=== PATIENT | male | born 1980 | race Caucasian/White ===

== ENCOUNTER 2017-03-27 07:16 | Emergency (ER) | payer BC ==
[2017-03-27 07:22] VITALS: BP 130/79
--- NOTE | 2017-03-27 07:51 | UC ---
Dental HPI - HPI Summary HPI Summary: c/o dental cavity for some time which started to ache and swell 2 days ago. Denies fever, denies PMH. States he has been taking ibuprofen but pain is still /10 - History of Current Complaint Chief Complaint: UCDentalProblem Stated Complaint: TOOTH ABCESS Time Seen by Provider: 03/27/17 07:32 Hx Obtained From: Patient Onset/Duration: Gradual Onset Severity: Severe Pain Intensity: 8 Pain Scale Used: 0-10 Numeric Aggravating Factor(s): Chewing Alleviating Factor(s): OTC Meds Related History: Swelling - Allergies/Home Medications Allergies/Adverse Reactions: Allergies Allergy/AdvReac Type Severity Reaction Status Date / Time No Known Allergies Allergy Verified 03/27/17 07:22 PMH/Surg Hx/FS Hx/Imm Hx Previously Healthy: Yes - Surgical History Surgical History: Yes Surgery Procedure, Year, and Place: EXTERNAL LT FEMOR FIXATOR - Family History Known Family History: Positive: Unknown - Social History Lives: With Family Alcohol Use: Daily Substance Use Type: Marijuana Smoking Status (MU): Heavy Every Day Tobacco Smoker Type: Cigarettes Have You Smoked in the Last Year: Yes Review of Systems Constitutional: Negative Skin: Negative Eyes: Negative ENT: Negative Respiratory: Negative Cardiovascular: Negative Gastrointestinal: Negative Genitourinary: Negative Motor: Negative Neurovascular: Negative Musculoskeletal: Negative Neurological: Negative Psychological: Negative All Other Systems Reviewed And Are Negative: Yes Physical Exam Triage Information Reviewed: Yes Appearance: Well-Appearing, No Pain Distress Vital Signs: Initial Vital Signs Temp 98.1 F 03/27/17 07:18 Pulse 113 03/27/17 07:18 Resp 20 03/27/17 07:18 BP 130/79 03/27/17 07:18 Pulse Ox 93 03/27/17 07:18 Vital Signs Reviewed: Yes ENT: Positive: Pharynx normal, TMs normal Dental Exam: Other - cavitation of molar left mandible with soft tissue swelling and fluctuant mass on left mandible Neck exam: Normal Respiratory Exam: Normal Respiratory: Positive: Lungs clear Cardiovascular Exam: Normal Dental Complaint Course/Dx - Course Course Of Treatment: Patient comes with a dental abscess and pain, referred to Dental and start antibiotics and pain control, amoxil 875mg po bid for 7 days, percoset 5/325 1 tab po q6h prn #4 - Differential Dx/Diagnosis Provider Diagnoses: dental abscess - Physician Notification/Consults Instructed by Provider To: Other - referral dental Discharge - Discharge Plan Condition: Stable Disposition: HOME Patient Education Materials: Dental Abscess (ED) Images Dental: 1 - cavity 2 - missing
== END 2017-03-27 08:10 | disposition home or self-care (01) ==
LOC: UCEAST 07:16
DX: K04.7 Periapical abscess without sinus (principal); F17.210 Nicotine dependence, cigarettes, uncomplicated
CPT/HCPCS: 99212; G0463

== ENCOUNTER 2017-04-30 12:36 | Emergency (ER) | payer BC ==
[2017-04-30 14:11] VITALS: BP 123/76
[2017-04-30] MEDS ORDERED: HYDROcodone/ACETAMIN 5-325 MG* 1 TAB PO ONE (15:04)
[2017-04-30] MEDS ORDERED: Ibuprofen TAB* 400 MG PO ONE (15:05)
--- NOTE | 2017-04-30 15:26 | UC ---
Dental HPI - HPI Summary HPI Summary: 36 year old male with history of tooth abscesses needing multiple dental work and drainage in the OR here with one month of dental pain and facial swelling. He was seen here about one month ago, sent home on amox with partial relief of his symptoms. Reports he went to see dentist but he was not able to get procedure because of insurance. Denies fever or chills. No other complaints. - History of Current Complaint Chief Complaint: UCDentalProblem Stated Complaint: DENTAL ABSCESS Time Seen by Provider: 04/30/17 14:45 Onset/Duration: Gradual Onset Aggravating Factor(s): Chewing Alleviating Factor(s): Nothing - Allergies/Home Medications Allergies/Adverse Reactions: Allergies Allergy/AdvReac Type Severity Reaction Status Date / Time No Known Allergies Allergy Verified 04/30/17 14:11 PMH/Surg Hx/FS Hx/Imm Hx Previously Healthy: No - Surgical History Surgical History: Yes Surgery Procedure, Year, and Place: EXTERNAL LT FEMOR FIXATOR, pilonial cyst - Family History Known Family History: Positive: Unknown - Social History Alcohol Use: Occasionally Substance Use Type: Marijuana Smoking Status (MU): Heavy Every Day Tobacco Smoker Type: Cigarettes Have You Smoked in the Last Year: Yes Review of Systems Constitutional: Negative Skin: Negative Eyes: Negative ENT: Dental Pain, Other - no drooling Respiratory: Negative Cardiovascular: Negative Gastrointestinal: Negative Genitourinary: Negative Motor: Negative Neurovascular: Negative Musculoskeletal: Negative Neurological: Negative Psychological: Negative All Other Systems Reviewed And Are Negative: Yes Physical Exam Triage Information Reviewed: Yes Appearance: Well-Appearing, Well-Nourished Vital Signs: Initial Vital Signs Temp 37.1 C 04/30/17 14:03 Pulse 88 04/30/17 14:03 Resp 18 04/30/17 14:03 BP 123/76 04/30/17 14:03 Pulse Ox 98 04/30/17 14:03 Dental: Positive: Gross Decay/Caries @ - left lower molar, Other: - Left lower molar swelling No drooling, No tongue swelling Neck exam: Normal Neck: Positive: Supple Respiratory: Positive: Lungs clear, Normal breath sounds, No respiratory distress, No accessory muscle use Musculoskeletal Exam: Normal Neurological Exam: Normal Skin Exam: Normal Dental Complaint Course/Dx - Course Course Of Treatment: Dental abscess. Will treat with abx and NSAID. [facility] dental info given for no or low cost dental offices. - Differential Dx/Diagnosis Provider Diagnoses: Dental abscess Discharge - Discharge Plan Condition: Good Disposition: HOME Prescriptions: Clindamycin Cap(NF) [Clindamycin Cap 300 mg Cap(NF)] 300 mg PO TID #30 cap Ibuprofen TAB* [Motrin TAB* 600 MG] 800 mg PO BID PRN #20 tab PRN Reason: Pain oxyCODONE/Acetamin 5/325 MG* [Percocet 5/325 TAB*] 1 tab PO Q6H PRN #10 tab MDD 4 PRN Reason: Pain Patient Education Materials: Dental Abscess (ED) Referrals: No Primary Care Phys,NOPCP [Primary Care Provider] - Additional Instructions: Please call the list of dental appointment that you are provided. Take medications as prescribed.
== END 2017-04-30 15:37 | disposition home or self-care (01) ==
LOC: UCEAST 12:36
DX: K04.7 Periapical abscess without sinus (principal); F12.90 Cannabis use, unspecified, uncomplicated; Z72.0 Tobacco use
CPT/HCPCS: 99212; A9270-GY; G0463

== ENCOUNTER 2017-05-12 07:55 | Emergency (ER) | payer BC ==
[2017-05-12 08:09] VITALS: BP 131/90
--- NOTE | 2017-05-12 08:33 | UC ---
Skin Complaint HPI - HPI Summary HPI Summary: ONSET OF DIFFUSE HIVES OVER WHOLE BODY YESTERDAY. PT THINKS HE IS REACTING TO A BUG BITE. DENIES ANY NEW FOODS, SOAPS, LOTIONS, DETERGENTS OR CLOTHES. NO NEW EXPOSURES HE CAN IDENTIFY. NO RESPIRATORY INVOLVEMENT. NO FEVER. NO PREVIOUS SIMILAR EPISODES. - History of Current Complaint Chief Complaint: UCRash Time Seen by Provider: 05/12/17 08:25 Stated Complaint: FEVER NAUSEA RASH Hx Obtained From: Patient Onset/Duration: Gradual Onset, Lasting Hours Timing: Constant Onset Severity: Mild Current Severity: Moderate Pain Intensity: 0 Pain Scale Used: 0-10 Numeric Location: Diffuse Character: Pruritus, Hives, Redness Aggravating Factor(s): Touch Alleviating Factor(s): Nothing Associated Signs & Symptoms: Positive: Rash Related History: Insect Bite/Sting - Allergy/Home Medications Allergies/Adverse Reactions: Allergies Allergy/AdvReac Type Severity Reaction Status Date / Time No Known Allergies Allergy Verified 04/30/17 14:11 Review of Systems Constitutional: Negative Skin: Rash Respiratory: Negative Cardiovascular: Negative Gastrointestinal: Negative All Other Systems Reviewed And Are Negative: Yes PMH/Surg Hx/FS Hx/Imm Hx Respiratory History: COPD - Surgical History Surgical History: Yes Surgery Procedure, Year, and Place: EXTERNAL LT FEMOR FIXATOR, pilonial cyst - Family History Known Family History: Positive: Hypertension - Social History Alcohol Use: Occasionally Substance Use Type: Marijuana Smoking Status (MU): Heavy Every Day Tobacco Smoker Type: Cigarettes Have You Smoked in the Last Year: Yes Physical Exam Triage Information Reviewed: Yes Appearance: Well-Appearing, No Pain Distress, Well-Nourished Vital Signs: Initial Vital Signs Temp 98.8 F 05/12/17 08:05 Pulse 90 05/12/17 08:05 Resp 16 05/12/17 08:05 BP 131/90 05/12/17 08:05 Pulse Ox 95 05/12/17 08:05 Vital Signs Reviewed: Yes Eyes: Positive: Conjunctiva Clear ENT: Positive: Hearing grossly normal Neck: Positive: Supple Respiratory: Positive: No respiratory distress, No accessory muscle use Cardiovascular: Positive: Pulses Normal Abdomen Description: Positive: Soft Musculoskeletal: Positive: No Edema Neurological: Positive: Alert Psychological: Positive: Age Appropriate Behavior Skin: Positive: rashes - HIVES DIFFUSELY OVER TRUNK, FACE, UPPER AND LOWER EXTREMITIES, GROIN Course/Dx - Diagnoses Provider Diagnoses: URTICARIA Discharge - Discharge Plan Condition: Stable Disposition: HOME Prescriptions: predniSONE TAB* [Deltasone TAB*] 50 mg PO DAILY #5 tab Triamcinolone 0.1% CREAM(NF) [Kenalog Cream 0.1%(NF)] 1 applic TOPICAL TID PRN # 1 tube PRN Reason: Itching Patient Education Materials: Urticaria (ED) Referrals: No Primary Care Phys,NOPCP [Primary Care Provider] - Additional Instructions: USE DAILY MOISTURIZING LOTION AVOID HEAT AND HOT WATER TAKE OTC ANTIHISTAMINE DAILY (CLARITIN (LORATADINE), ZYRTEC (CETIRIZINE) OR LULU (FEXOFENADINE) IN THE MORNING, 25-50MG BENADRYL AT NIGHT) DO NOT SCRATCH KEEP COOL, CLEAN AND DRY IF YOU HAVE RECURRENT SYMPTOMS CONSIDER EVALUATION BY OVERLOCK OPERATOR [facility] Address: [facility] [place] [address] [facility] [address] [place] [address] , [address] [place] [address] GO TO THE ER WITHOUT FAIL IF YOU DEVELOP ANY RESPIRATORY INVOLVEMENT, SWELLING OF THE MUCOUS MEMBRANES OR ANY OTHER CONCERNING SYMPTOMS. CALL THE NUMBER BELOW FOR ASSISTANCE IN ESTABLISHING WITH A PCP An additional resource available to assist in finding the appropriate physician for your health care needs is the [facility] ([facility]ica[facility] Limon). You may contact them by calling [phone].
== END 2017-05-12 08:43 | disposition home or self-care (01) ==
LOC: UCEAST 07:55
DX: L50.9 Urticaria, unspecified (principal); F17.210 Nicotine dependence, cigarettes, uncomplicated; J44.9 Chronic obstructive pulmonary disease, unspecified
CPT/HCPCS: 99212; G0463

== ENCOUNTER 2017-05-17 19:42 | Inpatient (IN) | payer BC ==
[2017-05-17] MEDS ORDERED: NS 0.9% 1000 ML* 1,000 ML IV ONE (22:30)
[2017-05-17 22:54] LABS: ABS Basophils 0.1 10^3/ul (0-0.2); ABS Eosinophils 0.1 10^3/ul (0-0.6); ABS Lymphocytes 2.2 10^3/ul (1.0-4.8); ABS Monocytes 1.2 10^3/ul (0-0.8); ABS Neutrophils 22.6 10^3/ul (1.5-7.7); ABS Nucleated RBC 0.01 10^3/ul; Eosinophil % 0.4 % (0-6); Hematocrit 43 % (42-52); Lymphocyte % 8.4 % (25-47); Mean Corpuscular HGB Conc 35 g/dl (31-36); Mean Corpuscular Hemoglobin 32 pg (27-31); Mean Corpuscular Volume 90 fL (80-94); Mean Platelet Volume 8 um3 (7.4-10.4); Nucleated Red Blood Cells % 0; Platelet Count 443 10^3/ul (150-450); Red Blood Count 4.72 10^6/ul (4.0-5.4); Red Cell Distribution Width 13 % (10.5-15); White Blood Count 26.2 10^3/ul (3.5-10.8)
[2017-05-17] MEDS ORDERED: Ondansetron INJ* 2 MG/ML VIAL IV ONE (22:54)
[2017-05-17] MEDS ORDERED: Ketorolac INJ* 30 MG/ML 1 ML VIAL IV PUSH ONE (22:57)
[2017-05-17] MEDS ORDERED: Morphine INJ* 4 MG/ML 1 ML CARPUJECT IV ONE (23:00)
[2017-05-17 23:06] LABS: EGFR Non-African American 131.3 (>60)
[2017-05-17 23:10] LABS: Urine Appearance Turbid; Urine Blood Negative (Negative); Urine Color Amber; Urine Ketones Trace (Negative); Urine Protein Negative (Negative); Urine Specific Gravity 1.025 (1.010-1.030); Urine Urobilinogen Positive (Negative)
[2017-05-18] MEDS ORDERED: NS 0.9% 1000 ML* 1,000 ML IV ONE ×2 (00:31→00:56)
[2017-05-18] MEDS ORDERED: Iohexol 300* (CONTRAST) 10 ML SDV IV ONE (01:26)
--- NOTE | 2017-05-18 02:32 | ED ---
Abdominal Pain/Male - HPI Summary HPI Summary: 36M presents with abdominal pain, nausea, vomiting and diarrhea since . He admits to fever. He states pain is greatest in RLQ but has generalized abdominal pain. He took ibuprofen and perocoet for his pain. He has not had any previous abdominal surgeries. He has never had this pain before. It is as 03/09. He denies any cough, dysuria, hematuria, flank pain, urgency or frequency. He denies anyone else being sick. He denies any blood in his stool. He denies any recent antibiotic usage. He states had rash a week ago that CC resolved with medication. He denies eating anything different. last meal 7pm shrimp which vomited up. had one episode diarrhea today. - History of Current Complaint Chief Complaint: EDAbdPain Stated Complaint: ABD PAIN/VOMITING Time Seen by Provider: 05/17/17 22:28 Pain Intensity: 10 - Allergies/Home Medications Allergies/Adverse Reactions: Allergies Allergy/AdvReac Type Severity Reaction Status Date / Time No Known Allergies Allergy Verified 05/17/17 20:03 PMH/Surg Hx/FS Hx/Imm Hx Endocrine/Hematology History: Denies: Hx Diabetes, Hx Thyroid Disease Cardiovascular History: Denies: Hx Hypertension Respiratory History: Reports: Hx Chronic Obstructive Pulmonary Disease (COPD) Denies: Hx Asthma GI History: Denies: Hx Ulcer History: Denies: Hx Dialysis, Hx Renal Disease - Surgical History Surgery Procedure, Year, and Place: EXTERNAL LT FEMOR FIXATOR, pilonial cyst Infectious Disease History: No Infectious Disease History: Denies: Hx Clostridium Difficile, Hx Hepatitis, Hx Human Immunodeficiency Virus (HIV), Hx of Known/Suspected MRSA, Hx Shingles, Hx Tuberculosis, Hx Known/ Suspected VRE, Hx Known/Suspected VRSA, History Other Infectious Disease, Traveled Outside the [place] in Last 30 Days - Family History Known Family History: Positive: Hypertension - Social History Alcohol Use: Occasionally Substance Use Type: Reports: Marijuana Smoking Status (MU): Heavy Every Day Tobacco Smoker Type: Cigarettes Have You Smoked in the Last Year: Yes Review of Systems Positive: Fever Negative: Chest Pain Negative: Shortness Of Breath Positive: Abdominal Pain, Vomiting, Diarrhea, Nausea All Other Systems Reviewed And Are Negative: Yes Physical Exam Triage Information Reviewed: Yes Vital Signs On Initial Exam: Initial Vitals Temp Pulse Resp BP Pulse Ox 99.2 F 98 16 136/81 96 05/17/17 19:55 05/17/17 19:55 05/17/17 19:55 05/17/17 19:55 05/17/17 19:55 Vital Signs Reviewed: Yes Appearance: Positive: Well-Appearing, Pain Distress Skin: Positive: Warm, Dry Head/Face: Positive: Normal Head/Face Inspection Eyes: Positive: Normal, EOMI, MARILEE, Conjunctiva Clear ENT: Positive: Normal ENT inspection, Pharynx normal, TMs normal Respiratory/Lung Sounds: Positive: Clear to Auscultation, Breath Sounds Present Cardiovascular: Positive: Normal, RRR Abdomen Description: Positive: Soft, Other: - diffuse tenderness greatest in RLQ Bowel Sounds: Positive: Present Musculoskeletal: Positive: Normal Neurological: Positive: Normal Psychiatric: Positive: Normal - Briseyda Coma Scale Coma Scale Total: 15 Diagnostics - Vital Signs Vital Signs Temp Pulse Resp BP Pulse Ox 05/18/17 01:03 100.4 F 101 18 138/72 91 05/17/17 23:25 20 05/17/17 21:44 98.6 F 104 16 125/75 93 05/17/17 19:55 99.2 F 98 16 136/81 96 - Laboratory Lab Results: Lab Results 05/17/17 05/17/17 05/17/17 Range/Units 22:43 22:43 22:59 WBC 26.2 H (3.5-10.8) 10^3/ul RBC 4.72 (4.0-5.4) 10^6/ul Hgb 15.0 (14.0-18.0) g/dl Hct 43 (42-52) % MCV 90 (80-94) fL MCH 32 H (27-31) pg MCHC 35 (31-36) g/dl RDW 13 (10.5-15) % Plt Count 443 (150-450) 10^3/ul MPV 8 (7.4-10.4) um3 Neut % (Auto) 86.1 H (38-83) % Lymph % (Auto) 8.4 L (25-47) % [place] % (Auto) 4.7 (1-9) % Eos % (Auto) 0.4 (0-6) % Baso % (Auto) 0.4 (0-2) % Absolute Neuts (auto) 22.6 H (1.5-7.7) 10^3/ul Absolute Lymphs (auto) 2.2 (1.0-4.8) 10^3/ul Absolute Monos (auto) 1.2 H (0-0.8) 10^3/ul Absolute Eos (auto) 0.1 (0-0.6) 10^3/ul Absolute Basos (auto) 0.1 (0-0.2) 10^3/ul Absolute Nucleated RBC 0.01 10^3/ul Nucleated RBC % 0 Sodium 132 L (133-145) mmol/L Potassium 3.3 L (3.5-5.0) mmol/L Chloride 93 L (101-111) mmol/L Carbon Dioxide 28 (22-32) mmol/L Anion Gap 11 (2-11) mmol/L BUN 8 (6-24) mg/dL Creatinine 0.69 (0.67-1.17) mg/dL Est GFR ( Amer) 168.8 (>60) Est GFR (Non-Af Amer) 131.3 (>60) BUN/Creatinine Ratio 11.6 (8-20) Glucose 109 H (70-100) mg/dL Lactic Acid (0.5-2.0) mmol/L Calcium 9.4 (8.6-10.3) mg/dL Total Bilirubin 0.60 (0.2-1.0) mg/dL AST 14 (13-39) U/L ALT 14 (7-52) U/L Alkaline Phosphatase 59 (34-104) U/L C-React Prot High Sens 28.38 mg/L Total Protein 7.3 (6.4-8.9) g/dL Albumin 4.2 (3.2-5.2) g/dL Globulin 3.1 (2-4) g/dL Albumin/Globulin Ratio 1.4 (1-3) Lipase 32 (11.0-82.0) U/L Urine Color Tammy Urine Appearance Turbid Urine pH 5.0 (5-9) Ur Specific [place] 1.025 (1.010-1.030) Urine Protein Negative (Negative) Urine Ketones Trace H (Negative) Urine Blood Negative (Negative) Urine Nitrate Negative (Negative) Urine Bilirubin Negative (Negative) Urine Urobilinogen Positive H (Negative) Ur Leukocyte Esterase Negative (Negative) Urine Glucose Negative (Negative) 12/19/17 Range/Units 01:19 WBC (3.5-10.8) 10^3/ul RBC (4.0-5.4) 10^6/ul Hgb (14.0-18.0) g/dl Hct (42-52) % MCV (80-94) fL MCH (27-31) pg MCHC (31-36) g/dl RDW (10.5-15) % Plt Count (150-450) 10^3/ul MPV (7.4-10.4) um3 Neut % (Auto) (38-83) % Lymph % (Auto) (25-47) % [place] % (Auto) (1-9) % Eos % (Auto) (0-6) % Baso % (Auto) (0-2) % Absolute Neuts (auto) (1.5-7.7) 10^3/ul Absolute Lymphs (auto) (1.0-4.8) 10^3/ul Absolute Monos (auto) (0-0.8) 10^3/ul Absolute Eos (auto) (0-0.6) 10^3/ul Absolute Basos (auto) (0-0.2) 10^3/ul Absolute Nucleated RBC 10^3/ul Nucleated RBC % Sodium (133-145) mmol/L Potassium (3.5-5.0) mmol/L Chloride (101-111) mmol/L Carbon Dioxide (22-32) mmol/L Anion Gap (2-11) mmol/L BUN (6-24) mg/dL Creatinine (0.67-1.17) mg/dL Est GFR ( Amer) (>60) Est GFR (Non-Af Amer) (>60) BUN/Creatinine Ratio (8-20) Glucose (70-100) mg/dL Lactic Acid 0.5 (0.5-2.0) mmol/L Calcium (8.6-10.3) mg/dL Total Bilirubin (0.2-1.0) mg/dL AST (13-39) U/L ALT (7-52) U/L Alkaline Phosphatase (34-104) U/L C-React Prot High Sens mg/L Total Protein (6.4-8.9) g/dL Albumin (3.2-5.2) g/dL Globulin (2-4) g/dL Albumin/Globulin Ratio (1-3) Lipase (11.0-82.0) U/L Urine Color Urine Appearance Urine pH (5-9) Ur Specific [place] (1.010-1.030) Urine Protein (Negative) Urine Ketones (Negative) Urine Blood (Negative) Urine Nitrate (Negative) Urine Bilirubin (Negative) Urine Urobilinogen (Negative) Ur Leukocyte Esterase (Negative) Urine Glucose (Negative) Result Diagrams: 05/17/17 22:43 05/17/17 22:43 Lab Statement: Any lab studies that have been ordered have been reviewed, and results considered in the medical decision making process. - Ultrasound No standard instances Ultrasound Interpretation: No Acute Changes Ultrasound Interpretation Completed By: Radiologist Abdominal Pain Fem Course/Dx - Course Course Of Treatment: 36M presents with abdominal pain, nausea, vomiting and diarrhea since . He admits to fever. He states pain is greatest in RLQ but has generalized abdominal pain. He took ibuprofen and perocoet for his pain. He has not had any previous abdominal surgeries. He has never had this pain before. It is as 10/10. He denies any cough, dysuria, hematuria, flank pain, urgency or frequency. He denies anyone else being sick. He denies any blood in his stool. He denies any recent antibiotic usage. He states had rash a week ago that CC resolved with medication. He denies eating anything different. on exam diffusely tender, greatest in RLQ, u/s normal. labs 26 wbc, crp 22. signed out to dr no pending CT. - Diagnoses Differential Diagnosis/HQI/PQRI: Appendicitis, Gall Bladder Disease, Urinary Tract Infection, Other - gastroenteritis Provider Diagnoses: Abdominal pain, Nausea vomiting and diarrhea Discharge - Discharge Plan Condition: Stable Disposition: OTHER Discharge Disposition Comment: signed out dr no pending CT Referrals: No Primary Care Phys,NOPCP [Primary Care Provider] -
[2017-05-18] MEDS ORDERED: Levofloxacin 500 MG IVPREMIX(* 500 MG/100 ML BAG IVPB ONE (04:00)
[2017-05-18] MEDS ORDERED: metroNIDAZOLE IV 500 MG/100ML* 500 MG/100 ML BAG IVPB ONE (04:00)
[2017-05-18] MEDS ORDERED: Mouth Piece, Nicotine* 1 EACH CARTRIDGE INH PRN (04:42)
[2017-05-18] MEDS ORDERED: Morphine VIAL* 10 MG/ML 1 ML VIAL IV ONE (04:43)
--- NOTE | 2017-05-18 04:46 | ED ---
Bob Branch Tiffany, duaneibed for Asa Cool on 05/18/17 at 0403 . Progress - Progress Note Progress Note: CT Abd/Pel reveals, per radiologist, nonspecific sigmoid colitis is likely infectious in origin. Correlation with history and exam is recommended. ED physician has reviewed this report. Course/Dx - Course Course Of Treatment: 36M presents with abdominal pain, nausea, vomiting and diarrhea since . He admits to fever. He states pain is greatest in RLQ but has generalized abdominal pain. He took ibuprofen and perocoet for his pain. He has not had any previous abdominal surgeries. He has never had this pain before. It is as 10. He denies any cough, dysuria, hematuria, flank pain, urgency or frequency. He denies anyone else being sick. He denies any blood in his stool. He denies any recent antibiotic usage. He states had rash a week ago that CC resolved with medication. He denies eating anything different. on exam diffusely tender, greatest in RLQ, u/s normal. labs 26 wbc, crp 22. CT Abd/Pel reveals, per radiologist, nonspecific sigmoid colitis is likely infectious in origin. Correlation with history and exam is recommended. Dr. Morrison (hospitalist) agrees to admit the patient. The patient is agreeable to this plan. - Diagnoses Provider Diagnoses: Abdominal pain, Nausea vomiting and diarrhea, Colitis, Sepsis - Provider Notifications Discussed Care Of Patient With: Gabe Morrison Time Discussed With Above Provider: 03:52 Instructed by Provider To: Other - Dr. Morrison (hospitalist) agrees to admit the patient. The documentation as recorded by the Bob reyna Tiffany accurately reflects the service I personally performed and the decisions made by , Asa Cool.
[2017-05-18] MEDS ORDERED: Morphine INJ* 4 MG/ML 1 ML CARPUJECT IV ONE (04:51)
[2017-05-18] MEDS: Nicotine Inhaler* 10 MG AMP INH PRN ×2 (04:58→11:48)
[2017-05-18] MEDS ORDERED: Acetaminophen TAB* 325 MG PO PRN (07:33)
[2017-05-18] MEDS ORDERED: Potassium Chlor TAB* 20 MEQ TAB.ER PO ONE (07:36)
--- NOTE | 2017-05-18 07:49 | RAD ---
HISTORY: Diffuse abdominal pain COMPARISONS: None TECHNIQUE: Multiple transverse and longitudinal ultrasound images were obtained of the right upper quadrant. FINDINGS: LIVER: The liver is normal in dimensions and echogenicity. Normal hepatic and portal venous blood flow is duplicated with color flow imaging. There is no gross intrahepatic biliary duct dilatation. GALLBLADDER AND EXTRAHEPATIC BILIARY DUCT: The gallbladder is normal in appearance without intraluminal stones or other soft tissue masses. There is no pericholecystic fluid or gallbladder wall thickening. The common bile duct measures a maximum diameter of 4 mm. PANCREAS: The portions of the pancreas not obscured by bowel gas are normal in appearance. RIGHT KIDNEY: The right kidney is normal in size, morphology and echogenicity. AORTA AND IVC: The visualized portions are normal in appearance and not pathologically dilated. IMPRESSION: Normal ultrasound of the right upper quadrant.
--- NOTE | 2017-05-18 08:05 | RAD ---
INDICATION: Lower abdominal pain. COMPARISON: Comparison is made with a prior right upper quadrant ultrasound from May 17, 2017. TECHNIQUE: A CT scan of the abdomen and pelvis was performed with intravenous and oral contrast following intravenous injection of 97 ml of Omnipaque 300 nonionic contrast. Contiguous axial sections were obtained from the lung bases through the symphysis pubis. Images were reconstructed in the coronal and sagittal planes. FINDINGS: The lung bases are clear. No pleural effusion is present. The liver and spleen are within normal limits in size without significant focal abnormality. No calcified gallstones are seen. The pancreas appears to be within normal limits in size. The kidneys and adrenal glands are normal in size. No hydronephrosis is seen. No significant focal renal abnormality is seen. The aorta is normal in caliber and demonstrates homogeneous contrast opacification. No significant enlarged retroperitoneal lymph nodes are seen. The stomach, small and large bowel appear nondistended. The appendix is not visualized. There is mild thickening of the wall of the sigmoid colon suggestive of colitis. No free intraperitoneal air is seen. There is a small amount of free intraperitoneal fluid present adjacent to the liver, in the right paracolic gutter and pelvis. No significant focal osseous abnormality is seen. IMPRESSION: 1. SMALL AMOUNT OF FREE INTRAPERITONEAL FLUID. 2. FINDINGS MOST CONSISTENT WITH COLITIS INVOLVING THE SIGMOID COLON. RECOMMEND CLINICAL CORRELATION AND FOLLOW-UP.
[2017-05-18] MEDS: NS 0.9% 1000 ML* 1,000 ML IV SCH ×2 (09:24→17:58)
[2017-05-18] MEDS: Morphine INJ* 2 MG/ML 1 ML SYRINGE (TWO MG - NEW SYRINGE VERSION) IV PRN ×2 (11:47→16:38)
[2017-05-18] MEDS: metroNIDAZOLE IV 500 MG/100ML* 500 MG/100 ML BAG IVPB SCH ×2 (14:09→22:01)
[2017-05-19] MEDS: NS 0.9% 1000 ML* 1,000 ML IV SCH (02:29)
[2017-05-19] MEDS: Morphine INJ* 2 MG/ML 1 ML SYRINGE (TWO MG - NEW SYRINGE VERSION) IV PRN ×2 (04:52→08:28)
[2017-05-19] MEDS ORDERED: Levofloxacin 500 MG IVPREMIX(* 500 MG/100 ML BAG IVPB SCH (05:00)
[2017-05-19] MEDS: metroNIDAZOLE IV 500 MG/100ML* 500 MG/100 ML BAG IVPB SCH (05:54)
[2017-05-19 06:44] LABS: ABS Basophils 0.1 10^3/ul (0-0.2); ABS Eosinophils 0.6 10^3/ul (0-0.6); ABS Monocytes 0.7 10^3/ul (0-0.8); ABS Neutrophils 6.2 10^3/ul (1.5-7.7); ABS Nucleated RBC 0.01 10^3/ul; Eosinophil % 5.3 % (0-6); Hematocrit 38 % (42-52); Hemoglobin 12.9 g/dl (14.0-18.0); Lymphocyte % 28.5 % (25-47); Mean Corpuscular HGB Conc 34 g/dl (31-36); Mean Corpuscular Hemoglobin 31 pg (27-31); Mean Corpuscular Volume 93 fL (80-94); Mean Platelet Volume 8 um3 (7.4-10.4); Nucleated Red Blood Cells % 0.1; Platelet Count 382 10^3/ul (150-450); Red Blood Count 4.12 10^6/ul (4.0-5.4); Red Cell Distribution Width 13 % (10.5-15); White Blood Count 10.6 10^3/ul (3.5-10.8)
[2017-05-19 07:04] LABS: EGFR Non-African American 160.4 (>60)
[2017-05-19] MEDS: Nicotine Inhaler* 10 MG AMP INH PRN (07:22)
--- NOTE | 2017-05-19 08:12 | HP ---
HISTORY AND PHYSICAL: DATE OF ADMISSION: 05/18/17 PRIMARY CARE PROVIDER: None. CHIEF COMPLAINT: Abdominal pain/nausea/vomiting/diarrhea. HISTORY OF PRESENT ILLNESS: Mr. Tay is a 36-year-old gentleman, generally healthy, who complains of abdominal pain, nausea, vomiting, and diarrhea since of last week. This was 4 days prior to admission. There was a subjective fever at home. He started developing abdominal pain in the right lower quadrant, but is now generalized. The patient has been taking over-the- counter ibuprofen and Percocet. The patient has not had abdominal surgeries and this is new pain for him. The patient has not had any accompanying symptoms. There is no pulmonary or chest discomfort. The patient denies any dysuria. There is no flank pain. He has not had any sick contacts. 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 The patient did report a rash a week ago and he went to urgent care and received antihistamines and steroid therapy. This cleared up. The patient has not been drinking and eating as much as normal. He came to the emergency room with persistent inability to keep up with his oral intake. PAST MEDICAL HISTORY: Limited, no chronic diagnoses. OUTPATIENT MEDICATIONS: No current medications/dhup-vmo-szngrib treatment. ALLERGIES: No known drug allergies. SOCIAL HISTORY: The patient smokes marijuana occasionally. He is single, but in a monogamous relationship with a female. His mother is a surrogate decision maker. She is his emergency contact. REVIEW OF SYSTEMS: Review of 14-systems was accomplished at the bedside. This is largely negative except for the pertinent positives as mentioned above in the HPI and Past Medical History. PHYSICAL EXAMINATION GENERAL APPEARANCE: Young man, appears stated age, no apparent distress. Awake , alert, and oriented x3. VITAL SIGNS: On admission, temperature 100.4 degrees Fahrenheit, pulse 101 ( SIRS criteria), respirations 18, oxygen saturation 91% on room air, blood pressure 130s/70s. HEENT: Full jolly. Oropharynx is clear. Mucous membranes are moist. No posterior pharyngeal erythema or exudate. Pupils equal, round, and reactive to light and accommodation. NECK: Supple. No elevated JVD. Normal trachea. Normal thyroid. No carotid bruits. CHEST: Clear breath sounds anteriorly and posteriorly. HEART: Regular rate and rhythm. No murmurs, rubs, gallops appreciated. ABDOMEN: Diffusely tender, but not distended and not rigid - no evidence of an acute abdomen. NEUROLOGIC: His exam is nonfocal. Normal sensory, motor sensory and proprioception components. PSYCH: Normal affect. No acute anxiety or depression and good medical claims examiner. SKIN: Dry and intact. No rash is appreciated. LYMPH: No adenopathy appreciated. ADMISSION DATA: White blood cell count 26.2, hemoglobin 15, platelets 443. Blood chemistry significant for a low sodium 132, low potassium at 3.3, low chloride at 93, bicarb 28 (elevated), BUN 8, creatinine 0.69, glucose 109, lactic acid controlled at 0.5. LFTs normal. CRP elevated 28.38. Total protein preserved at 7.3 as was the albumin at 4.2. Lipase normal at 32. CT abdomen and pelvis was done at 2259 hours on 05/17/17 while an emergency room patient and that showed some free intraperitoneal fluid and findings consistent with colitis involving the sigmoid colon. The patient had a gallbladder ultrasound considering his diffuse pain and this did not show any biliary system disease. No liver disease. No free air. Normal ultrasound to the right upper quadrant. IMPRESSION: Mr. Tay is a 36-year-old gentleman with colitis of unclear etiology. He is having multiple stools daily. He has been unable to take oral fluids or solid food. The patient has an elevated white blood cell count and meets sepsis criteria and has sepsis secondary to his colitis. The patient will be admitted to the hospital, will be aggressively hydrated with several liters of normal saline, he will be treated with IV antibiotics to include IV Levaquin and metronidazole. This was started in the emergency room. Blood cultures were drawn. He will be admitted to the hospital. I do not think he will be going home on 05/19/17. His stool and vomiting will be quantified and further decisions will be made based on his clinical progress. TIME SPENT: Total time taken to admit Mr. Tay was 75 minutes, greater than half the time was spent at the bedside, going over the history and physical examination and examining the patient. [id number]/[facility] #: [id number] MTDD
[2017-05-19] MEDS ORDERED: Influenza VAC *QUAD* 2017-18* 0.5 ML SYRINGE IM ONE (09:00)
[2017-05-19 12:26] VITALS: BP 139/82
--- NOTE | 2017-06-29 01:37 | DS ---
DISCHARGE SUMMARY: DATE OF ADMISSION: 05/18/17 DATE OF DISCHARGE: 05/19/17 PRIMARY CARE PROVIDER: None. DISCHARGE DIAGNOSIS: Colitis - unclear etiology - resolving. SECONDARY DIAGNOSIS: None. DISCHARGE MEDICATIONS: New: Flagyl 500 mg by mouth 3 times daily for 5 days - 15 tabs prescribed. Work release given to patient to return to work on 05/25/17. HISTORY OF PRESENT ILLNESS AND HOSPITAL COURSE: Please see my H and P on . In brief, Mr. Tay is a 36-year-old gentleman, generally healthy who complained of abdominal pain, nausea and vomiting and diarrhea since of the week prior to admission. This was over a 4-day period. There were subjective fevers reported and abdominal pain in the right lower quadrant. The patient had a CT scan that showed findings consistent with colitis involving the sigmoid colon. The patient was reporting high volume diarrhea, he was placed on IV antibiotics - Flagyl upon being admitted to the hospital. His diarrhea in an unexpected fashion decreased. He only had 1 or 2 episodes and was clearly keeping up with this fluid requirements. There were not profound electrolyte abnormalities other than hypokalemia, hypochloridemia and hyponatremia. The patient, of concern, had an initial white count of 26.2 but this fell to the normal range the following day at 10.6. His hemoglobin fell from 15 to 12.9 - certainly related to dilution. The patient is being discharged in stable condition with ongoing Flagyl therapy for 5 days. The patient was given return to ED instructions and he was also asked to consider calling the physician referral line to establish a PCP although the patient admitted he is generally healthy and may not follow through with this recommendation. The patient can come back to the emergency room if he has any worrisome symptoms including but not limited to chest pain, shortness of breath, lightheadedness, worsening diarrhea, high fevers or any other worrisome symptoms that do not analia. TIME SPENT: Total time taken to discharge Mr. Tay was 30 minutes, greater than half that time was spent conducting discharge counseling and coordination of care at the bedside. [id number]/[facility] #: [id number] MTDD
== END 2017-05-19 13:10 | disposition home or self-care (01) | DRG 249 ==
LOC: ED 19:42 → MED 05-18 07:33
PROVIDERS: ADMIT Internal Medicine; ATTEND Internal Medicine
DX: K52.9 Noninfective gastroenteritis and colitis, unspecified (principal); E87.8 Other disorders of electrolyte and fluid balance, not elsewhere classified; E87.1 Hypo-osmolality and hyponatremia; F12.90 Cannabis use, unspecified, uncomplicated; J44.9 Chronic obstructive pulmonary disease, unspecified; F17.210 Nicotine dependence, cigarettes, uncomplicated; R40.2412 Glasgow coma scale score 13-15, at arrival to emergency department; E87.6 Hypokalemia; Z82.49 Family history of ischemic heart disease and other diseases of the circulatory system
CPT/HCPCS: 36415; 74177; 76705; 80053; 81003; 83605; 83690; 83735; 85025; 86141; 87040; 90686; 99406; A9270-GY; J1885; J1956; J2270; J2405; J3490; Q9967

== ENCOUNTER 2019-07-22 10:00 | Emergency (ER) | payer BC ==
[2019-07-22 10:47] VITALS: BP 128/93
--- NOTE | 2019-07-22 10:49 | UC ---
Dental HPI - HPI Summary HPI Summary: 39 yo male presents with left lower tooth pain and jaw swelling. He tells me that he has a broken rotted tooth here and gets an abscess every few months/ year. He does not have a dentist and does not want to go to a dentist. Over the last week has had pain and swelling to the area. Has not been taking anything OTC for symptoms. Denies fever, chills. He is tolerating po well. - History of Current Complaint Chief Complaint: UCDentalProblem Stated Complaint: JAW PAIN AND SWELLING Time Seen by Provider: 07/22/19 10:48 Hx Obtained From: Patient Onset/Duration: Sudden Onset Severity: Mild Pain Intensity: 1 Pain Scale Used: 0-10 Numeric - Allergies/Home Medications Allergies/Adverse Reactions: Allergies Allergy/AdvReac Type Severity Reaction Status Date / Time No Known Allergies Allergy Verified 07/22/19 10:41 Home Medications: Home Medications clindamycin HCL [Clindamycin HCl] 300 mg PO TID #21 capsule 07/22/19 [Rx] PMH/Surg Hx/FS Hx/Imm Hx - Additional Past Medical History Additional PMH: None - Surgical History Surgical History: Yes Surgery Procedure, Year, and Place: EXTERNAL LT FEMOR FIXATOR, pilonial cyst - Family History Known Family History: Positive: Hypertension - Social History Lives: With Family Alcohol Use: Daily Substance Use Type: Marijuana Substance Use Comment - Amount & Last Used: daily Smoking Status (MU): Heavy Every Day Tobacco Smoker Type: Cigarettes Amount Used/How Often: 2 PPD Have You Smoked in the Last Year: Yes - Immunization History Most Recent Influenza Vaccination: never Most Recent Pneumonia Vaccination: never Review of Systems All Other Systems Reviewed And Are Negative: No Constitutional: Positive: Negative Skin: Positive: Negative Eyes: Positive: Negative ENT: Positive: Dental Pain Respiratory: Positive: Negative Cardiovascular: Positive: Negative Neurological/Mental Status: Positive: Negative Psychological: Positive: Negative Physical Exam - Summary Physical Exam Summary: GENERAL: NAD. WDWN. No pain distress. SKIN: No rashes, sores, lesions, or open wounds. HEENT: Head: AT/NC Nose: Nasal mucosa pink and moist. NTTP maxillary and frontal sinus. Throat: Posterior oropharynx without exudates, erythema, or tonsillar enlargement. Uvula midline. NECK: Supple. Nontender. No lymphadenopathy. CHEST: CTAB. No r/r/w. No accessory muscle use. Breathing comfortably and in no distress. CV: RRR. Pulses intact. Cap refill <2seconds NEURO: Alert. PSYCH: Age appropriate behavior. Triage Information Reviewed: Yes Vital Signs: Initial Vital Signs Temp 98.7 F 07/22/19 10:42 Pulse 96 07/22/19 10:42 Resp 18 07/22/19 10:42 BP 128/93 07/22/19 10:42 Pulse Ox 99 07/22/19 10:42 Vital Signs Reviewed: Yes Dental: Positive: Gross Decay/Caries @ - throughout, Dental Fracture @ - Tooth # 19, Abscess @ - Tooth #19, Other: - Tooth #19 fracture with purulent yellow discharge. Negative: Cellulitis @, Cervical Lymphadenopathy, Bleeding Dental Complaint Course/Dx - Course Course Of Treatment: Tooth #19 abscess - Differential Dx/Diagnosis Provider Diagnosis: Dental abscess Discharge ED - Sign-Out/Discharge Documenting (check all that apply): Patient Departure All imaging exams completed and their final reports reviewed: No Studies - Discharge Plan Condition: Stable Disposition: HOME Prescriptions: clindamycin HCL [Clindamycin HCl] 300 mg PO TID #21 capsule Patient Education Materials: Dental Abscess (ED) Referrals: No Primary Care Phys,NOPCP [Primary Care Provider] - Additional Instructions: If you develop a fever, shortness of breath, chest pain, new or worsening symptoms - please call your PCP or go to the ED immediately. - Billing Disposition and Condition Condition: STABLE Disposition: Home - Attestation Statements Provider Attestation: This patient was not seen by me. I was available for consult. Chart reviewed. ASIA
== END 2019-07-22 11:08 | disposition home or self-care (01) ==
LOC: UCEAST 10:00
DX: K04.7 Periapical abscess without sinus (principal); F17.210 Nicotine dependence, cigarettes, uncomplicated
CPT/HCPCS: 99212; G0463

== ENCOUNTER 2019-08-02 17:55 | Emergency (ER) | payer BC ==
[2019-08-02 21:19] LABS: ABS Basophils 0.1 10^3/ul (0-0.2); ABS Eosinophils 0.1 10^3/ul (0-0.6); ABS Lymphocytes 2.1 10^3/ul (1.0-4.8); ABS Monocytes 0.6 10^3/ul (0-0.8); ABS Neutrophils 8.8 10^3/ul (1.5-7.7); Eosinophil % 0.5 %; Hematocrit 45 % (42-52); Hemoglobin 15.6 g/dL (14.0-18.0); Lymphocyte % 17.7 %; Mean Corpuscular HGB Conc 35 g/dL (31-36); Mean Corpuscular Hemoglobin 32 pg (27-31); Mean Corpuscular Volume 92 fL (80-94); Mean Platelet Volume 9.1 fL (7.4-10.4); Platelet Count 247 10^3/uL (150-450); Red Blood Count 4.84 10^6 /uL (4.18-5.48); Red Cell Distribution Width 13 % (10-15); White Blood Count 11.6 10^3/uL (3.5-10.8)
[2019-08-02] MEDS ORDERED: NS 0.9% 1000 ML** 1,000 ML IV ONE ×2 (21:22→23:23)
[2019-08-02] MEDS ORDERED: Pantoprazole IV* 40 MG IV ONE (21:22)
[2019-08-02] MEDS ORDERED: Ondansetron INJ* 2 MG/ML VIAL IV ONE (21:22)
[2019-08-02] MEDS ORDERED: Ketorolac INJ* 30 MG/ML 1 ML VIAL IV PUSH ONE (21:22)
[2019-08-02 21:26] LABS: INR 0.93 (0.82-1.09)
[2019-08-02 21:35] LABS: ALT 59 U/L (7-52); AST 47 U/L (13-39); Albumin 4.6 g/dL (3.2-5.2); Albumin/Globulin Ratio 1.6 (1-3); Alkaline Phosphatase 87 U/L (34-104); Amylase 43 U/L (29-103); Anion Gap 10 mmol/L (2-11); Blood Urea Nitrogen 9 mg/dL (6-24); C Reactive Protein 10.73 mg/L (<8.01); CO2 Carbon Dioxide 25 mmol/L (22-32); Calcium 9.4 mg/dL (8.6-10.3); Chloride 100 mmol/L (101-111); EGFR African American 156.1 (>60); Globulin 2.8 g/dL (2-4); Glucose 140 mg/dL (70-100); Potassium 3.6 mmol/L (3.5-5.0); Sodium 135 mmol/L (135-145); Total Protein 7.4 g/dL (6.4-8.9)
--- NOTE | 2019-08-02 21:40 | ED ---
Abdominal Pain/Male - HPI Summary HPI Summary: Patient is a 39 y/o M presenting to [facility] accompanied by with a chief complaint of urticarial rash onset yesterday with GI symptoms onset today. He reports a history of colitis in 2017 with similar symptoms, so he is concerned that this episode is related. He began experiencing diarrhea two days ago with hives developing yesterday, and then fevers, abdominal pain, nausea, and vomiting starting today. He has taken Benadryl this morning around 0800 without relief. Pain is currently rated 8/10 in severity. He notes he did not have a colonoscopy when he was previously diagnosed with colitis. He recently finished a course of Clindamycin for tooth infection. PMHx: HTN, COPD. Current smoker, daily EtOH (some early this morning/late last night), marijuana use. Medications reviewed. Allergies noted. - History of Current Complaint Chief Complaint: EDAbdPain Stated Complaint: POS COLON INFECTION PER PT Time Seen by Provider: 08/02/19 21:21 Hx Obtained From: Patient Onset/Duration: Gradual Onset, Still Present Timing: Constant Severity Initially: Moderate Severity Currently: Severe Pain Intensity: 8 Pain Scale Used: 0-10 Numeric Location: Diffuse Radiates: No Character: Sharp Aggravating Factor(s): Nothing Alleviating Factor(s): Nothing Associated Signs And Symptoms: Positive: Fever, Nausea, Vomiting, Diarrhea, Other - diffuse hives - Allergies/Home Medications Allergies/Adverse Reactions: Allergies Allergy/AdvReac Type Severity Reaction Status Date / Time No Known Allergies Allergy Verified 08/02/19 18:00 Home Medications: Home Medications NK [No Home Medications Reported] 08/02/19 [History Confirmed 08/02/19] PMH/Surg Hx/FS Hx/Imm Hx Endocrine/Hematology History: Denies: Hx Diabetes, Hx Thyroid Disease Cardiovascular History: Reports: Hx Hypertension Respiratory History: Reports: Hx Chronic Obstructive Pulmonary Disease (COPD) Denies: Hx Asthma GI History: Reports: Other GI Disorders - colitis Denies: Hx Ulcer History: Denies: Hx Dialysis, Hx Renal Disease Sensory History: Denies: Hx Contacts or Glasses, Hx Hearing Aid Opthamlomology History: Denies: Hx Contacts or Glasses - Surgical History Surgical History: Yes Surgery Procedure, Year, and Place: EXTERNAL LT FEMOR FIXATOR, pilonial cyst Infectious Disease History: No Infectious Disease History: Denies: Hx Clostridium Difficile, Hx Hepatitis, Hx Human Immunodeficiency Virus (HIV), Hx of Known/Suspected MRSA, Hx Shingles, Hx Tuberculosis, Hx Known/ Suspected VRE, Hx Known/Suspected VRSA, History Other Infectious Disease, Traveled Outside the [place] in Last 30 Days - Family History Known Family History: Positive: Hypertension - Social History Alcohol Use: Daily Alcohol Amount: "20 plus" drinks a day Hx Substance Use: Yes Substance Use Type: Reports: Marijuana Substance Use Comment - Amount & Last Used: daily Hx Tobacco Use: Yes Smoking Status (MU): Heavy Every Day Tobacco Smoker Type: Cigarettes Amount Used/How Often: 2 PPD Have You Smoked in the Last Year: Yes Cessation Counseling: Patient Advised to Stop - Additional Comments History Additional Comments: colitis, hypertension, COPD Review of Systems - ROS Summary Review of Systems Summary: Home Medications Medication Instructions Recorded Confirmed Type NK [No Home Medications Reported] 08/02/19 08/02/19 History Positive: Fever Positive: Abdominal Pain, Vomiting, Diarrhea, Nausea Positive: Other - diffuse urticarial rash All Other Systems Reviewed And Are Negative: Yes Physical Exam - Summary Physical Exam Summary: General: Mildly ill-appearing, Well-developed, Well-nourished male. Mildly anxious-appearing. No acute distress. HEENT: Normocephalic, Atraumatic. Eyes: Conjuctiva normal, PERRL. Oropharynx: Clear, mucous membranes moist, (-) exudates. Neck: Soft, FROM, (-) lymphadenopathy, (-) thyromegaly, (-) JVD. Cardiovascular: Normal sinus rhythm, (-) murmur. Lungs: Clear to auscultation bilaterally (-) wheezes, (-) rales, (-) rhonchi. Abdomen: Soft, mildly tender to palpation diffusely, non-distended, (-) organomegaly, normal bowel sounds. Back: (-) CVA tenderness Extremities: No edema. Skin: Warm, dry, (+) rash - multiple hives over face, arms, chest, legs Neuro: Alert and oriented x3, moves all extremities equally. No ataxia. No gait disturbance. No sensory deficit. Normal strength, normal sensation. Psychiatric: Mood normal, affect normal. Triage Information Reviewed: Yes Vital Signs On Initial Exam: Initial Vitals Temp Pulse Resp BP Pulse Ox 99.9 F 117 22 143/91 96 08/02/19 17:56 08/02/19 17:56 08/02/19 17:56 08/02/19 17:56 08/02/19 17:56 Vital Signs Reviewed: Yes Procedures - Sedation Patient Received Moderate/Deep Sedation with Procedure: No Diagnostics - Vital Signs Vital Signs Temp Pulse Resp BP Pulse Ox 08/02/19 20:12 100.1 F 115 22 146/97 94 08/02/19 17:56 99.9 F 117 22 143/91 96 - Laboratory Lab Results: Lab Results 08/02/19 08/02/19 08/02/19 Range/Units 21:05 21:05 21:05 WBC 11.6 H (3.5-10.8) 10^3/uL RBC 4.84 (4.18-5.48) 10^6 /uL Hgb 15.6 (14.0-18.0) g/dL Hct 45 (42-52) % MCV 92 (80-94) fL MCH 32 H (27-31) pg MCHC 35 (31-36) g/dL RDW 13 (10-15) % Plt Count 247 (150-450) 10^3/uL MPV 9.1 (7.4-10.4) fL Neut % (Auto) 75.8 % Lymph % (Auto) 17.7 % [place] % (Auto) 5.4 % Eos % (Auto) 0.5 % Baso % (Auto) 0.6 % Absolute Neuts (auto) 8.8 H (1.5-7.7) 10^3/ul Absolute Lymphs (auto) 2.1 (1.0-4.8) 10^3/ul Absolute Monos (auto) 0.6 (0-0.8) 10^3/ul Absolute Eos (auto) 0.1 (0-0.6) 10^3/ul Absolute Basos (auto) 0.1 (0-0.2) 10^3/ul Absolute Nucleated RBC 0.0 10^3/ul Nucleated RBC % 0.0 INR (Anticoag Therapy) 0.93 (0.82-1.09) Lactic Acid 0.7 (0.5-2.0) mmol/L Result Diagrams: 08/02/19 21:05 08/02/19 21:05 Lab Statement: Any lab studies that have been ordered have been reviewed, and results considered in the medical decision making process. - CT Abd/Pel CT CT Interpretation Completed By: Radiologist Summary of CT Findings: Impression: No CT findings to correlate with patient's symptomatology. ED physician has reviewed this report. Re-Evaluation - Re-Evaluation First Eval Re-Evaluation Time: 23:20 Change: Improved Comment: Discussed CT results. He is feeling much better. He has not had any further episodes of vomiting. Second Eval Re-Evaluation Time: 00:20 Change: Improved Comment: Patient requesting discharge as he is feeling better. Discussed results warranting return to the ED. Abdominal Pain Male Course/Dx - Course Course Of Treatment: 39-year-old male presents with abdominal pain and diarrhea. He states this started as hives a couple days ago. Took Benadryl without relief. Started diarrhea yesterday. Also some nausea. Low-grade fevers. Today her vomiting. He states he is concerned because he similar symptoms in 2017. He states he waited a couple weeks before coming in and was diagnosed with colitis. Was in the hospital for 3 day that time. On physical exam he appears in discomfort at rest. Mild diffuse tenderness on exam. Temperature up to 100.1. Patient given IV fluids, Protonix, Toradol and Zofran. Significant improvement in his symptoms. CAT scan demonstrated no significant abnormality. Patient discharged home with vomiting abdominal pain and diarrhea. Advised clear fluids and rest. Advance slowly to bread diet as tolerated. Follow-up with PCP. Follow sooner for any worsening symptoms. - Diagnoses Provider Diagnoses: Tobacco use, Vomiting, Diarrhea, Abdominal pain Discharge ED - Sign-Out/Discharge Documenting (check all that apply): Patient Departure - discharge - Discharge Plan Condition: Stable Disposition: HOME Patient Education Materials: How to Stop Smoking (ED), Acute Nausea and Vomiting (ED), Acute Diarrhea (ED), Abdominal Pain (ED) Referrals: [facility] [Outside] - 3 Days Additional Instructions: Follow up with your primary care provider in 2-3 days. Return to the emergency department for any new or worsening symptoms. - Billing Disposition and Condition Condition: STABLE Disposition: Home - Attestation Statements Document Initiated by Scribe: Yes Documenting Scribe: Kristine Rojo Provider For Whom Scribe is Documenting (Include Credential): Elisabet Aragon MD Scribe Attestation: I, Kristine Rojo, scribed for Elisabet Aragon MD on 08/03/19 at 0504. Scribe Documentation Reviewed: Yes Provider Attestation: The documentation as recorded by the duaneibjonathan, Kristine Rojo accurately reflects the service I personally performed and the decisions made by me, Elisabet Aragon MD Status of Scrroamn Document: Viewed
[2019-08-02] MEDS ORDERED: Iohexol 300* (CONTRAST) 10 ML SDV IV ONE (21:43)
[2019-08-02 21:52] LABS: Urine Appearance Clear; Urine Bilirubin Negative (Negative); Urine Blood Negative (Negative); Urine Color Amber; Urine Glucose Negative (Negative); Urine Ketones 1+ (Negative); Urine Nitrite Negative (Negative); Urine Protein Negative (Negative); Urine Specific Gravity 1.021 (1.010-1.030); Urine Urobilinogen Negative (Negative)
[2019-08-02 22:01] LABS: Alcohol < 10 mg/dL (<10)
[2019-08-03] MEDS ORDERED: diPHENhydraMINE IV* 50 MG/ML 1 ml VIAL (BENADRYL) IV ONE (00:32)
[2019-08-03 00:35] VITALS: BP 138/83
== END 2019-08-03 00:35 | disposition home or self-care (01) ==
LOC: ED 17:55
DX: R11.2 Nausea with vomiting, unspecified (principal); R19.7 Diarrhea, unspecified; R10.84 Generalized abdominal pain; R50.9 Fever, unspecified; L50.9 Urticaria, unspecified; I10 Essential (primary) hypertension; J44.9 Chronic obstructive pulmonary disease, unspecified; F17.210 Nicotine dependence, cigarettes, uncomplicated
CPT/HCPCS: 36415; 74177; 80053; 80320; 81003; 82150; 83605; 83690; 85025; 85610; 86140; 96361; 96374; 96375; 99283; G0480; J1200; J1885; J2405; Q9967

== ENCOUNTER 2021-06-30 17:52 | Inpatient (IN) ==
[2021-06-30 18:15] LABS: ABS Lymphocytes 2.3 10^3/ul (1.0-4.8); ABS Monocytes 1.2 10^3/ul (0-0.8); Eosinophil % 0.1 %; Hematocrit 45 % (42-52); Hemoglobin 15.7 g/dL (14.0-18.0); Lymphocyte % 19.7 %; Mean Corpuscular HGB Conc 35 g/dL (31-36); Mean Corpuscular Hemoglobin 33 pg (27-31); Mean Corpuscular Volume 94 fL (80-94); Mean Platelet Volume 9.5 fL (7.4-10.4); Nucleated Red Blood Cells % 0.1; Platelet Count 258 10^3/uL (150-450); Red Blood Count 4.74 10^6 /uL (4.18-5.48); Red Cell Distribution Width 13 % (10-15); White Blood Count 11.6 10^3/uL (3.5-10.8)
[2021-06-30 18:37] LABS: Albumin 4.9 g/dL (3.2-5.2); Albumin/Globulin Ratio 1.6 (1-3); Potassium 3.7 mmol/L (3.5-5.0); Total Bilirubin 0.6 mg/dL (0.2-1.0); Total Protein 7.9 g/dL (6.4-8.9); eGFR CKD-EPI 121.3 (>60)
[2021-06-30 18:46] LABS: INR 0.9 (0.86-1.15)
[2021-06-30] MEDS ORDERED: Albuterol HFA INHALER 8 gm MDI INH ONE ×2 (18:46→20:44)
[2021-06-30] MEDS ORDERED: methylPREDNISolone 125 mg 2 ML VIAL IV ONE (19:01)
[2021-06-30] MEDS ORDERED: Magnesium Sulfate 2 gm BAG 2 GM/50 ML BAG IVPB ONE (19:02)
[2021-06-30] MEDS ORDERED: Iohexol 350 (CONTRAST) 500 ML MDV IV ONE (19:25)
[2021-06-30 20:22] LABS: Rapid COVID-19 Molecular Undetected (Undetected)
[2021-06-30] MEDS ORDERED: Albuterol/Ipratropium NEB.SOL (2.5/0.5 MG) 3 ML NEB.SOLN INH ONE (20:48)
[2021-06-30] MEDS ORDERED: LORazepam 2 mg VIAL 1 ml IV PUSH ONE (20:49)
[2021-06-30] MEDS ORDERED: Lorazepam PYXIS KEY PRN (20:49)
[2021-06-30] MEDS ORDERED: Enoxaparin 40 MG/0.4 ML SYR SUBCUT SCH (23:00)
[2021-06-30] MEDS ORDERED: Nicotine GUM 4MG FRUIT FLAVOR PO ONE (23:42)
[2021-06-30] MEDS: Nicotine GUM 4MG FRUIT FLAVOR PO PRN (23:48)
[2021-07-01] MEDS ORDERED: Thiamine 100 MG/ML 2 ml VIAL (200 mg) IM ONE (00:29)
[2021-07-01] MEDS ORDERED: Azithromycin 500 mg/250 ml NS 500 MG/250 ML BAG IVPB SCH (01:00)
[2021-07-01] MEDS: Nicotine GUM 4MG FRUIT FLAVOR PO PRN (02:36)
[2021-07-01] MEDS: Multivitamins/Minerals TAB PO SCH ×2 (02:38→09:39)
[2021-07-01] MEDS: Albuterol HFA INHALER 8 gm MDI INH SCH ×4 (02:38→13:03)
[2021-07-01] MEDS ORDERED: LORazepam 2 mg VIAL 1 ml IV PUSH SCH (05:00)
[2021-07-01 15:03] VITALS: BP 112/46
== END 2021-07-01 15:10 | disposition home or self-care (01) | DRG 192 ==
LOC: ED 17:52 → EDHOLD 22:27 → MEDTELE 07-01 05:30
PROVIDERS: ADMIT Internal Medicine; ATTEND Internal Medicine